=== PATIENT | female | born 1950 | race Caucasian/White ===

== ENCOUNTER 2019-05-15 09:42 | Day surgery (SDC) | payer MEDICARE, OTHER ==
[~2019-05-15 09:42] MED LIST: Lactated Ringers 1,000 ML IV SCH
[2019-05-15] MEDS ORDERED: fentaNYL 100 MCG/2 ML SDV ONE (11:31)
[2019-05-15] MEDS ORDERED: Propofol 200 MG/20 ML SDV ONE (11:31)
[2019-05-15 13:46] VITALS: BP 106/34
[2019-05-15 14:18] VITALS: PULSE 56
--- NOTE | 2019-05-15 19:04 | OR ---
DATE OF SURGERY: 05/15/2019. REFERRING PROVIDER: Destiny Shaw PA-C. PRE-OPERATIVE DIAGNOSES: History of colon cancer back in the mid 90s. The patient had sigmoid colectomy done at that time. Last colonoscopy was 5 years ago and was normal, except for some benign small polyps. POST-OPERATIVE DIAGNOSES: 1. Two small polyps, removed using cold forceps. a. A 2-mm polyp at 60 cm (actually located in the right colon.). b. A 3-mm polyp at 10 cm removed using cold forceps. 2. Mild diverticulosis. 3. Mild hemorrhoids, not acutely inflamed. PROCEDURE: Colonoscopy with polypectomy x2 using cold forceps. SURGEON: Joseph Vargas M.D. ANESTHESIA: Monitored anesthesia care. BOWEL PREP: Good. Katherine is a 68-year-old female who was brought to the endoscopy suite after discussing risks and benefits of the procedure. Informed consent was obtained for conscious sedation and colonoscopy with or without biopsy and/or polypectomy. We also discussed possibility of missed lesions. Pre-procedure exam was unremarkable. IV, oxygen, and monitors were placed. The patient was placed in the left lateral decubitus position. Sedation was administered and a digital rectal exam was performed which was unremarkable. Colonoscope was passed into the rectum and slowly advanced all the way to the cecum. Cecum was viewed and photographed. The colonoscope was slowly withdrawn and the mucosa was closed observed in a direct circumferential manner. The ascending colon revealed 2 mm polyp at 60 cm, removed with cold forceps. The transverse colon was unremarkable. The remainder of the left colon was unremarkable, except for a 3-mm polyp at the rectosigmoid junction, which was removed using cold forceps. Retroflexion was performed and rectal mucosa revealed some mild internal hemorrhoids, not acutely inflamed. Scope was removed. The patient tolerated the procedure well. The patient was monitored until that baseline status. Discharge instructions were reviewed and the patient was discharged in good condition. COMPLICATIONS: None. TOTAL TIME: 17 minutes. ESTIMATED BLOOD LOSS: 1 to 2 mL. RECOMMENDATIONS/FOLLOW-UP: We will await results of path report to determine ideal followup interval. I would like to kindly thank Destiny Shaw PA-C, for this referral. DMB: 05/15/2019 13:47:55 MODL: 05/15/2019 18:59:31 /[id number]
== END 2019-05-15 14:55 | disposition home or self-care (01) ==
LOC: VM.SDS 09:42
PROVIDERS: ATTEND Family Medicine
DX: Z12.11 Encounter for screening for malignant neoplasm of colon (principal); D12.2 Benign neoplasm of ascending colon; D12.7 Benign neoplasm of rectosigmoid junction; K57.30 Diverticulosis of large intestine without perforation or abscess without bleeding; K64.8 Other hemorrhoids; I10 Essential (primary) hypertension; E78.5 Hyperlipidemia, unspecified; E53.8 Deficiency of other specified B group vitamins; J30.9 Allergic rhinitis, unspecified; F41.1 Generalized anxiety disorder; M81.0 Age-related osteoporosis without current pathological fracture; Z88.8 Allergy status to other drugs, medicaments and biological substances; Z88.2 Allergy status to sulfonamides; Z91.09 Other allergy status, other than to drugs and biological substances; Z90.49 Acquired absence of other specified parts of digestive tract; Z85.038 Personal history of other malignant neoplasm of large intestine; Z86.010 Personal history of colon polyps; Z79.51 Long term (current) use of inhaled steroids; Z79.899 Other long term (current) drug therapy
CPT/HCPCS: 45380; 88305; J2704; J3010; J7120

== ENCOUNTER 2022-12-28 01:24 | Observation (INO) | payer MEDICARE, OTHER ==
[2022-12-28] MEDS ORDERED: Sodium Chloride 0.9% 1,000 ML IV ONE (02:09)
[2022-12-28 02:49] LABS: CHLORIDE,CL 100 mmol/L (98-107); SODIUM,NA 140 mmol/L (136-145)
[2022-12-28 02:56] LABS: ANION GAP 12.3 mmol/L (5-15); ESTIMATED GFR 78 mL/min (>=60)
[2022-12-28] MEDS ORDERED: Potassium Chloride Riders 20 MEQ in Premix Bag 1 BAG IV ONE ×2 (02:57→05:00)
[2022-12-28] MEDS ORDERED: Sodium Chloride 0.9% 1,000 ML IV SCH (03:00)
[2022-12-28] MEDS ORDERED: Acetaminophen 325 MG Tab PO PRN (03:29)
[2022-12-28] MEDS ORDERED: Ondansetron 4 MG/2 ML SDV IV PRN (03:29)
[2022-12-28] MEDS ORDERED: Sodium Chloride 0.9% 10 ML Syringe FLUSH PRN (03:29)
[2022-12-28] MEDS ORDERED: Ondansetron 4 MG Tab.DIS PO PRN (03:29)
[2022-12-28] MEDS ORDERED: Loratadine 10 MG Tab PO PRN (03:35)
[2022-12-28 08:38] LABS: ANION GAP 11.5 mmol/L (5-15)
[2022-12-28] MEDS ORDERED: Sertraline 50 MG Tab PO SCH ×2 (09:00)
[2022-12-28] MEDS ORDERED: Dexamethasone/Tobramycin 0.1-0.3% Ophth Susp 2.5 ML Bottle EYEBOTH SCH (09:00)
[2022-12-28] MEDS ORDERED: Sertraline 25 MG Tab PO SCH (09:00)
[2022-12-28] MEDS ORDERED: Potassium Chloride 20 MEQ Tab.ER PO SCH (09:00)
[2022-12-28] MEDS ORDERED: Non-Formulary Medication 1 Each (Fluticasone Propionate [Flonase] 16 GM Bottle) NASBOTH SCH (09:00)
[2022-12-28] MEDS ORDERED: AZELASTINE HCL 137 MCG/0.137 ML NASBOTH SCH (09:00)
[2022-12-28] MEDS ORDERED: ROSUVASTATIN 10 MG PO SCH (09:00)
[2022-12-28] MEDS ORDERED: Chlorthalidone 25 MG Tab PO SCH (09:30)
[2022-12-28 16:23] VITALS: BP 119/64; PULSE 64
[2022-12-28] MEDS ORDERED: ROSUVASTATIN 20 MG PO SCH (21:00)
[2022-12-28] MEDS ORDERED: Donepezil 10 MG Tab PO SCH (21:00)
== END 2022-12-28 13:05 | disposition home or self-care (01) ==
LOC: VM.ED 01:24 → VM.MS 03:05
PROVIDERS: ADMIT Physician Assistant Medical; ATTEND Family Medicine
DX: E87.6 Hypokalemia (principal); I48.91 Unspecified atrial fibrillation; E78.00 Pure hypercholesterolemia, unspecified; I10 Essential (primary) hypertension; K21.9 Gastro-esophageal reflux disease without esophagitis; F41.9 Anxiety disorder, unspecified; R73.03 Prediabetes; E53.8 Deficiency of other specified B group vitamins; J30.9 Allergic rhinitis, unspecified; Z79.899 Other long term (current) drug therapy; Z88.2 Allergy status to sulfonamides; Z88.8 Allergy status to other drugs, medicaments and biological substances; Z98.890 Other specified postprocedural states
CPT/HCPCS: 36415; 71045; 80048; 80053; 82550; 83605; 83615; 83880; 84443; 84484; 85025; 85379; 86140; 93005; 96361; 96365; 96366; 99285-25; A9270-GY; G0378; J3480; J7030

== ENCOUNTER 2022-12-31 11:22 | Emergency (ER) | payer MEDICARE, OTHER ==
[2022-12-31] MEDS ORDERED: Sodium Chloride 0.9% 10 ML Syringe FLUSH PRN (11:47)
[2022-12-31] MEDS ORDERED: Acetaminophen 500 MG Tab PO ONE (11:50)
[2022-12-31 12:38] LABS: CHLORIDE,CL 100 mmol/L (98-107); SODIUM,NA 139 mmol/L (136-145)
[2022-12-31 12:39] LABS: ANION GAP 12.3 mmol/L (5-15); ESTIMATED GFR 68 mL/min (>=60)
[2022-12-31 12:41] LABS: PTT,PARTIAL THROMBOPLSTIN TIME 24.1 SEC (23.6-33.6)
[2022-12-31 12:48] VITALS: BP 144/73; PULSE 65
[2022-12-31 13:11] LABS: CORONAVIRUS COVID-19 NAA NEGATIVE (NEGATIVE); RESPIRATORY SYNCYTIAL VIR NAA NEGATIVE (NEGATIVE)
[2022-12-31] MEDS ORDERED: Take Home: Nitrofurantoin Monohydrate/Macrocrystalline 100 MG, 6 Cap Pack PO ONE (13:18)
== END 2022-12-31 13:28 | disposition home or self-care (01) ==
LOC: VM.ED 11:22
DX: N39.0 Urinary tract infection, site not specified (principal); R53.1 Weakness; I48.91 Unspecified atrial fibrillation; E78.00 Pure hypercholesterolemia, unspecified; I10 Essential (primary) hypertension; Z91.048 Other nonmedicinal substance allergy status; Z91.018 Allergy to other foods; Z88.2 Allergy status to sulfonamides; Z88.8 Allergy status to other drugs, medicaments and biological substances; Z79.01 Long term (current) use of anticoagulants; Z79.899 Other long term (current) drug therapy; Z20.822 Contact with and (suspected) exposure to COVID-19
CPT/HCPCS: 0241U; 36415; 71045; 80053; 81001; 83605; 83735; 84100; 84145; 84484; 85025; 85610; 85730; 86140; 87040; 87086; 93005; 99285; A9270; 93010; 99284

== ENCOUNTER 2023-09-28 11:54 | Emergency (ER) | payer MEDICARE, OTHER ==
[2023-09-28] MEDS ORDERED: Sodium Chloride 0.9% 10 ML Syringe FLUSH PRN (11:58)
[2023-09-28] MEDS: Nitroglycerin 0.4 MG Tab.SL SL ONE (12:10)
[2023-09-28] MEDS: Aspirin 81 MG Tab.Chew PO ONE (12:11)
[2023-09-28] MEDS ORDERED: Nitroglycerin 0.4 MG Tab.SL ONE (12:13)
[2023-09-28] MEDS ORDERED: Aspirin 81 MG Tab.Chew ONE (12:14)
[2023-09-28 12:24] LABS: BASOPHILS PERCENT AUTO 0.6 % (0.2-1.2); EOSINOPHILS ABSOLUTE AUTO 0.1 x10^3/uL (0.0-0.5); EOSINOPHILS PERCENT AUTO 1.4 % (0.0-4.0); HEMOGLOBIN 13.5 g/dL (12.0-16.0); IMMATURE GRAN ABSOLUTE AUTO 0.01 x10^3/uL (0.00-0.07); LYMPHOCYTES ABSOLUTE AUTO 0.7 x10^3/uL (1.0-4.8); LYMPHOCYTES PERCENT AUTO 13.2 % (25.0-50.0); MEAN CORPUSCULAR HEMOGLOBIN 28.6 pg (26.0-32.0); MEAN CORPUSCULAR HGB CONC 32.9 g/dL (32.0-36.0); MEAN CORPUSCULAR VOLUME 86.9 fL (78.0-93.0); MONOCYTES ABSOLUTE AUTO 0.5 x10^3/uL (0.0-0.8); MONOCYTES PERCENT AUTO 9.9 % (2.0-11.0); NEUTROPHILS ABSOLUTE AUTO 3.9 x10^3/uL (1.8-7.7); NEUTROPHILS PERCENT AUTO 74.7 % (50.0-80.0); PLATELET COUNT,PLT 142 x10^3/uL (130-400); RED BLOOD CELL COUNT 4.72 x10^6/uL (4.00-5.50); WHITE BLOOD CELL COUNT,WBC 5.2 x10^3/uL (4.0-10.0)
[2023-09-28 12:37] LABS: PROTHROMBIN TIME 11.1 SEC (9.5-12.2); PTT,PARTIAL THROMBOPLSTIN TIME 26.3 SEC (23.6-33.6)
[2023-09-28 12:46] LABS: LACTIC ACID 1.3 mmol/L (0.4-2.0)
[2023-09-28 12:49] LABS: ALANINE AMINOTRANSFERASE,ALT 17 U/L (14-59); ALBUMIN 3.5 g/dL (3.4-5.0); ALKALINE PHOSPHATASE 61 U/L (46-116); ASPARTATE AMNIOTRANSFERASE,AST 14 U/L (15-37); BILIRUBIN TOTAL 0.4 mg/dL (0.2-1.0); BLOOD UREA NITROGEN,BUN 14 mg/dL (7-18); CALCIUM 8.8 mg/dL (8.5-10.1); CARBON DIOXIDE,CO2 32 mmol/L (21-32); CHLORIDE,CL 104 mmol/L (98-107); CREATININE 0.8 mg/dL (0.55-1.02); GLUCOSE RANDOM 89 mg/dL (70-99); MAGNESIUM 1.8 mg/dL (1.8-2.4); POTASSIUM,K 3.7 mmol/L (3.5-5.1); SODIUM,NA 144 mmol/L (136-145); TSH ULTRASENSITIVE 2.813 uIU/mL (0.358-3.74)
[2023-09-28 12:50] LABS: ANION GAP 11.7 mmol/L (5-15); C-REACTIVE PROTEIN < 0.50 mg/dL (<=0.50); ESTIMATED GFR 78 mL/min (>=60)
[2023-09-28 15:00] LABS: CORONAVIRUS COVID-19 NAA NEGATIVE (NEGATIVE); INFLUENZA A NAA NEGATIVE (NEGATIVE); INFLUENZA B NAA NEGATIVE (NEGATIVE); RESPIRATORY SYNCYTIAL VIR NAA NEGATIVE (NEGATIVE)
[2023-09-28 16:43] VITALS: BP 138/62; PULSE 80
== END 2023-09-28 15:25 | disposition home or self-care (01) ==
LOC: VM.ED 11:54
DX: R07.89 Other chest pain (principal); I10 Essential (primary) hypertension; E78.00 Pure hypercholesterolemia, unspecified; I48.91 Unspecified atrial fibrillation; Z90.710 Acquired absence of both cervix and uterus; Z79.899 Other long term (current) drug therapy; Z88.2 Allergy status to sulfonamides; Z88.8 Allergy status to other drugs, medicaments and biological substances; Z91.018 Allergy to other foods; Z91.048 Other nonmedicinal substance allergy status; Z20.822 Contact with and (suspected) exposure to COVID-19
CPT/HCPCS: 0241U; 36415; 70450; 71045; 80053; 83605; 83735; 84443; 84484; 85025; 85610; 85730; 86140; 87040; 93005; 99285; A9270

== ENCOUNTER 2023-11-10 10:07 | Emergency (ER) | payer MEDICARE, OTHER ==
[2023-11-10 10:21] VITALS: BP 148/74; PULSE 91
[2023-11-10] MEDS ORDERED: Oxymetazoline 0.05% Nasal Spray 30 ML Bottle NAS ONE (10:30)
== END 2023-11-10 11:35 | disposition home or self-care (01) ==
LOC: VM.ED 10:07
DX: R04.0 Epistaxis (principal); I10 Essential (primary) hypertension; E78.00 Pure hypercholesterolemia, unspecified; Z79.01 Long term (current) use of anticoagulants; Z88.2 Allergy status to sulfonamides; Z88.8 Allergy status to other drugs, medicaments and biological substances; Z91.018 Allergy to other foods; Z91.048 Other nonmedicinal substance allergy status; Z79.899 Other long term (current) drug therapy
CPT/HCPCS: 30901; 30903; 99283; 99283-25; A9270-GY

== ENCOUNTER 2024-07-02 07:28 | Emergency (ER) | payer MEDICARE, OTHER ==
[2024-07-02 07:59] VITALS: BP 152/68; PULSE 51
[2024-07-02 08:00] LABS: BASOPHILS PERCENT AUTO 0.7 % (0.2-1.2); EOSINOPHILS ABSOLUTE AUTO 0.2 x10^3/uL (0.0-0.5); EOSINOPHILS PERCENT AUTO 3.6 % (0.0-4.0); HEMATOCRIT 40.1 % (33.0-47.0); HEMOGLOBIN 13.3 g/dL (12.0-16.0); IMMATURE GRAN ABSOLUTE AUTO 0.01 x10^3/uL (0.00-0.07); LYMPHOCYTES ABSOLUTE AUTO 0.8 x10^3/uL (1.0-4.8); LYMPHOCYTES PERCENT AUTO 19.7 % (25.0-50.0); MEAN CORPUSCULAR HEMOGLOBIN 29.1 pg (26.0-32.0); MEAN CORPUSCULAR HGB CONC 33.2 g/dL (32.0-36.0); MEAN CORPUSCULAR VOLUME 87.7 fL (78.0-93.0); MONOCYTES ABSOLUTE AUTO 0.5 x10^3/uL (0.0-0.8); MONOCYTES PERCENT AUTO 11.4 % (2.0-11.0); NEUTROPHILS ABSOLUTE AUTO 2.7 x10^3/uL (1.8-7.7); NEUTROPHILS PERCENT AUTO 64.4 % (50.0-80.0); PLATELET COUNT,PLT 127 x10^3/uL (130-400); RED BLOOD CELL COUNT 4.57 x10^6/uL (4.00-5.50); WHITE BLOOD CELL COUNT,WBC 4.2 x10^3/uL (4.0-10.0)
[2024-07-02 08:20] LABS: A/G RATIO 1.03; ALBUMIN 3.3 g/dL (3.4-5.0); BILIRUBIN TOTAL 0.6 mg/dL (0.2-1.0); CALCIUM 8.8 mg/dL (8.5-10.1); CREATININE 0.8 mg/dL (0.55-1.02); EST CRCL DRUG DOSING (CG) 47.26 mL/min; POTASSIUM,K 3.8 mmol/L (3.5-5.1); PROTEIN TOTAL,TP 6.5 g/dL (6.4-8.2)
[2024-07-02 08:25] LABS: ANION GAP 10.8 mmol/L (5-15)
== END 2024-07-02 09:44 | disposition home or self-care (01) ==
LOC: VM.ED 07:28 → SUPCPDRO 07:28 → VM.ED 09:44
DX: R51.9 Headache, unspecified (principal); I10 Essential (primary) hypertension; E78.00 Pure hypercholesterolemia, unspecified; Z90.710 Acquired absence of both cervix and uterus; Z79.899 Other long term (current) drug therapy; Z79.51 Long term (current) use of inhaled steroids; Z88.2 Allergy status to sulfonamides; Z88.8 Allergy status to other drugs, medicaments and biological substances; Z91.018 Allergy to other foods; Z91.048 Other nonmedicinal substance allergy status
CPT/HCPCS: 36415; 70450; 80053; 82947; 84484; 85025; 93005; 99284

== ENCOUNTER 2024-10-18 08:23 | Emergency (ER) | payer MEDICARE, OTHER ==
[2024-10-18 08:47] VITALS: BP 144/67; PULSE 64
[2024-10-18 09:12] LABS: APPEARANCE,URINE CLOUDY (CLEAR); BILIRUBIN,URINE NEGATIVE (NEGATIVE); COLOR,URINE YELLOW (YELLOW); GLUCOSE,URINE NEGATIVE (NEGATIVE); KETONES,URINE NEGATIVE (NEGATIVE); LEUKOCYTE ESTERASE,URINE MODERATE (NEGATIVE); NITRITE,URINE NEGATIVE (NEGATIVE); OCCULT BLOOD,URINE LARGE (NEGATIVE); PH,URINE 6.5 (5.0-8.0); PROTEIN,URINE >=300 mg/dL (NEGATIVE); UROBILINOGEN,URINE 0.2 EU/dL (0.2)
[2024-10-18 09:19] LABS: BACTERIA,URINE FEW /HPF (NOT SEEN); MUCUS,URINE NOT SEEN /LPF (NOT SEEN); RBC,URINE NOT SEEN /HPF (NOT SEEN); SQUAMOUS EPITHELIAL CELLS,UR NOT SEEN /HPF (NOT SEEN); WBC,URINE PACKED /HPF (NOT SEEN)
== END 2024-10-18 09:44 | disposition home or self-care (01) ==
LOC: VM.ED 08:23
DX: N30.00 Acute cystitis without hematuria (principal); I10 Essential (primary) hypertension; E78.00 Pure hypercholesterolemia, unspecified; Z88.2 Allergy status to sulfonamides; Z88.8 Allergy status to other drugs, medicaments and biological substances; Z91.018 Allergy to other foods; Z91.048 Other nonmedicinal substance allergy status; Z79.899 Other long term (current) drug therapy; Z90.710 Acquired absence of both cervix and uterus
CPT/HCPCS: 81001; 87086; 87088; 87186; 99283; 99284

== ENCOUNTER 2024-12-15 12:43 | Emergency (ER) | payer MEDICARE, OTHER ==
[2024-12-15 13:22] LABS: BASOPHILS PERCENT AUTO 0.5 % (0.2-1.2); EOSINOPHILS PERCENT AUTO 0.5 % (0.0-4.0); HEMATOCRIT 42.1 % (33.0-47.0); HEMOGLOBIN 14.3 g/dL (12.0-16.0); IMMATURE GRAN ABSOLUTE AUTO 0.01 x10^3/uL (0.00-0.07); LYMPHOCYTES ABSOLUTE AUTO 0.7 x10^3/uL (1.0-4.8); LYMPHOCYTES PERCENT AUTO 17.6 % (25.0-50.0); MEAN CORPUSCULAR VOLUME 85.4 fL (78.0-93.0); MONOCYTES ABSOLUTE AUTO 0.5 x10^3/uL (0.0-0.8); MONOCYTES PERCENT AUTO 11.2 % (2.0-11.0); PLATELET COUNT,PLT 142 x10^3/uL (130-400); RED BLOOD CELL COUNT 4.93 x10^6/uL (4.00-5.50); WHITE BLOOD CELL COUNT,WBC 4.2 x10^3/uL (4.0-10.0)
[2024-12-15 13:35] LABS: ALANINE AMINOTRANSFERASE,ALT 18 U/L (14-59); ALBUMIN 3.6 g/dL (3.4-5.0); ALKALINE PHOSPHATASE 54 U/L (46-116); ASPARTATE AMNIOTRANSFERASE,AST 22 U/L (15-37); BILIRUBIN TOTAL 0.5 mg/dL (0.2-1.0); BLOOD UREA NITROGEN,BUN 20 mg/dL (7-18); CALCIUM 9.2 mg/dL (8.5-10.1); CARBON DIOXIDE,CO2 24 mmol/L (21-32); CHLORIDE,CL 101 mmol/L (98-107); CREATININE 0.7 mg/dL (0.55-1.02); GLUCOSE RANDOM 77 mg/dL (70-99); MAGNESIUM 1.8 mg/dL (1.8-2.4); POTASSIUM,K 4.2 mmol/L (3.5-5.1); PROTEIN TOTAL,TP 7.2 g/dL (6.4-8.2); SODIUM,NA 136 mmol/L (136-145)
[2024-12-15 13:38] LABS: ANION GAP 15.2 mmol/L (5-15); ESTIMATED GFR 91 mL/min (>=60)
[2024-12-15 13:40] VITALS: BP 128/73; PULSE 73
== END 2024-12-15 14:15 | disposition home or self-care (01) ==
LOC: VM.ED 12:43
DX: R53.83 Other fatigue (principal); I48.91 Unspecified atrial fibrillation; I10 Essential (primary) hypertension; E78.00 Pure hypercholesterolemia, unspecified; K21.9 Gastro-esophageal reflux disease without esophagitis; Z90.710 Acquired absence of both cervix and uterus; Z79.899 Other long term (current) drug therapy; Z79.01 Long term (current) use of anticoagulants; Z88.2 Allergy status to sulfonamides; Z88.8 Allergy status to other drugs, medicaments and biological substances; Z91.048 Other nonmedicinal substance allergy status; Z91.018 Allergy to other foods
CPT/HCPCS: 36415; 80053; 83735; 85025; 93010; 99284

== ENCOUNTER 2025-03-26 07:51 | Day surgery (SDC) | payer MEDICARE, OTHER ==
[2025-03-26] MEDS: Lactated Ringers 1,000 ML IV SCH (08:13)
[2025-03-26] MEDS ORDERED: Propofol 200 MG/20 ML SDV ONE (09:12)
[2025-03-26] MEDS ORDERED: Midazolam 1 MG/ML 2 ML SDV ONE (09:12)
[2025-03-26] MEDS ORDERED: fentaNYL 100 MCG/2 ML SDV ONE (09:12)
[2025-03-26 11:03] VITALS: BP 105/51; PULSE 43
== END 2025-03-26 11:57 | disposition home or self-care (01) ==
LOC: VM.SDS 07:51
PROVIDERS: ATTEND Family Medicine
DX: Z12.11 Encounter for screening for malignant neoplasm of colon (principal); D12.6 Benign neoplasm of colon, unspecified; K63.5 Polyp of colon; K57.30 Diverticulosis of large intestine without perforation or abscess without bleeding; Z86.0100 Personal history of colon polyps, unspecified; Z85.038 Personal history of other malignant neoplasm of large intestine
CPT/HCPCS: 88305; J2250; J2704; J3010; J7120

== ENCOUNTER 2025-07-16 12:39 | Emergency (ER) | payer MEDICARE, OTHER ==
[2025-07-16] MEDS ORDERED: Sodium Chloride 0.9% 10 ML Syringe FLUSH PRN (12:53)
[2025-07-16 13:14] LABS: BASOPHILS ABSOLUTE AUTO 0.1 x10^3/uL (0.0-0.2); BASOPHILS PERCENT AUTO 0.8 % (0.2-1.2); EOSINOPHILS ABSOLUTE AUTO 0.1 x10^3/uL (0.0-0.5); EOSINOPHILS PERCENT AUTO 1.0 % (0.0-4.0); IMMATURE GRAN ABSOLUTE AUTO 0.00 x10^3/uL (0.00-0.07); IMMATURE GRAN PERCENT AUTO 0.00 % (0.00-0.43); LYMPHOCYTES ABSOLUTE AUTO 0.8 x10^3/uL (1.0-4.8); LYMPHOCYTES PERCENT AUTO 12.3 % (25.0-50.0); MONOCYTES ABSOLUTE AUTO 0.6 x10^3/uL (0.0-0.8); MONOCYTES PERCENT AUTO 9.2 % (2.0-11.0); NEUTROPHILS ABSOLUTE AUTO 4.7 x10^3/uL (1.8-7.7); NEUTROPHILS PERCENT AUTO 76.7 % (50.0-80.0); PLATELET COUNT,PLT 135 x10^3/uL (130-400); RED BLOOD CELL COUNT 4.38 x10^6/uL (4.00-5.50); WHITE BLOOD CELL COUNT,WBC 6.2 x10^3/uL (4.0-10.0)
[2025-07-16 13:34] LABS: A/G RATIO 1.13; ALANINE AMINOTRANSFERASE,ALT 17 U/L (14-59); ASPARTATE AMNIOTRANSFERASE,AST 14 U/L (15-37); BILIRUBIN TOTAL 0.5 mg/dL (0.2-1.0); BLOOD UREA NITROGEN,BUN 15 mg/dL (7-18); CARBON DIOXIDE,CO2 29 mmol/L (21-32); CHLORIDE,CL 106 mmol/L (98-107); CREATININE 0.8 mg/dL (0.55-1.02); GLUCOSE RANDOM 95 mg/dL (70-99); POTASSIUM,K 3.9 mmol/L (3.5-5.1); PROTEIN TOTAL,TP 6.8 g/dL (6.4-8.2); SODIUM,NA 138 mmol/L (136-145)
[2025-07-16 13:35] LABS: ESTIMATED GFR 77 mL/min (>=60)
[2025-07-16 13:40] LABS: APPEARANCE,URINE SLIGHTLY CLOUDY (CLEAR); GLUCOSE,URINE NEGATIVE (NEGATIVE); OCCULT BLOOD,URINE NEGATIVE (NEGATIVE)
[2025-07-16 14:06] VITALS: BP 153/72; PULSE 65
== END 2025-07-16 15:05 | disposition home or self-care (01) ==
LOC: VM.ED 12:39
DX: R10.10 Upper abdominal pain, unspecified (principal); I48.91 Unspecified atrial fibrillation; I10 Essential (primary) hypertension; E78.00 Pure hypercholesterolemia, unspecified; K21.9 Gastro-esophageal reflux disease without esophagitis; Z90.710 Acquired absence of both cervix and uterus; Z88.2 Allergy status to sulfonamides; Z88.8 Allergy status to other drugs, medicaments and biological substances; Z91.018 Allergy to other foods; Z91.048 Other nonmedicinal substance allergy status; Z79.01 Long term (current) use of anticoagulants; Z79.899 Other long term (current) drug therapy
CPT/HCPCS: 36415; 74018; 80053; 81003; 83605; 83690; 85025; 86140; 99284